=== PATIENT | female | born 1970 | race American Indian/Alaskan Native ===

== ENCOUNTER → 2020-12-15 | Emergency (ER) | payer SELFPAY | LOC: DL.ED 20:07 | DX: Z53.21 Procedure and treatment not carried out due to patient leaving prior to being seen by health care provider (principal) ==

== ENCOUNTER 2021-03-24 16:39 | Emergency (ER) | payer MEDICAID ==
--- NOTE | 2021-03-24 17:18 | CR ---
PROCEDURE INFORMATION: Exam: XR Right Knee Exam date and time: 03/24/2021 5:04 PM Age: 50 years old Clinical indication: Other: Fall/pain; Additional info: Fell on ice R knee pain TECHNIQUE: Imaging protocol: XR Right knee. Views: 3 views. COMPARISON: No relevant prior studies available. FINDINGS: Bones/joints: No acute fracture or dislocation. Very minimal degenerative spurring. Soft tissues: Unremarkable. IMPRESSION: No acute findings.
[2021-03-24] MEDS ORDERED: Acetaminophen 500 MG Tab PO ONE (17:31)
--- NOTE | 2021-03-24 17:36 | EDM.PDOC ---
ED HPI GENERAL MEDICAL PROBLEM - General Chief Complaint: Lower Extremity Injury/Pain Stated Complaint: FELL ON ICE, RIGHT KNEE HURTS Time Seen by Provider: 03/24/21 17:31 Source of Information: Reports: Patient History Limitations: Reports: No Limitations - History of Present Illness INITIAL COMMENTS - FREE TEXT/NARRATIVE: 50 y/o F slipped on ice and fell on the ice. C/o R knee pain. No loc, no other injury. Has been drinking alcohol today. She denies fever, cough, chills, drugs. Right Knee Pain Score (Numeric/FACES): 7 - Related Data Allergies Allergy/AdvReac Type Severity Reaction Status Date / Time No Known Allergies Allergy Verified 03/24/21 17:14 Home Meds: Home Meds . [No Known Home Meds] 03/24/21 [History] Past Medical History HEENT History: Reports: Impaired Vision Other HEENT History: wear glasses Cardiovascular History: Reports: None Respiratory History: Reports: Asthma, COPD Gastrointestinal History: Reports: Cholelithiasis Genitourinary History: Reports: None [employer]CHITECT History: Reports: None Musculoskeletal History: Reports: None Neurological History: Reports: None Psychiatric History: Reports: None Endocrine/Metabolic History: Reports: None Hematologic History: Reports: None Immunologic History: Reports: None Oncologic (Cancer) History: Reports: None Dermatologic History: Reports: None - Infectious Disease History Infectious Disease History: Reports: None - Past Surgical History Head Surgeries/Procedures: Reports: None GI Surgical History: Reports: Cholecystectomy Social & Family History - Tobacco Use Tobacco Use Status *Q: Current Every Day Tobacco User Years of Tobacco use: 21 Packs/Tins Daily: 0.5 Second Hand Smoke Exposure: No - Caffeine Use Caffeine Use: Reports: Coffee - Recreational Drug Use Recreational Drug Use: No Review of Systems - Review of Systems Review Of Systems: Comprehensive ROS is negative, except as noted in HPI. ED EXAM, GENERAL - Physical Exam Exam: See Below Exam Limited By: No Limitations General Appearance: Alert, No Apparent Distress Eye Exam: Bilateral Eye: PERRL Respiratory/Chest: No Respiratory Distress, Lungs Clear, Normal Breath Sounds, No Accessory Muscle Use, Chest Non-Tender Cardiovascular: Normal Peripheral Pulses, Regular Rate, Rhythm, No Edema, No Gallop, No JVD, No Murmur, No Rub Peripheral Pulses: 2+: Posterior Tibial (L), Posterior Tibial (R), Dorsalis Pedis (L), Dorsalis Pedis (R) GI/Abdominal: Soft, Non-Tender (Female) Exam: Deferred Rectal (Female) Exam: Deferred Back Exam: Normal Inspection, Full Range of Motion Extremities: Normal Inspection, Normal Range of Motion, Non-Tender, No Pedal Edema, Normal Capillary Refill, Other (Except for slight abrasion and tenderness to R anterior knee, no deformity full range of motion able to bear weight) Course - Vital Signs Last Recorded V/S: Last Vital Signs Temp 97.1 F 03/24/21 16:54 Pulse 96 03/24/21 16:54 Resp 16 03/24/21 16:54 BP 135/95 H 03/24/21 16:54 Pulse Ox 97 03/24/21 16:54 - Orders/Labs/Meds Orders: Active Orders 24 hr Category Date Time Status Acetaminophen [Tylenol Extra Strength] Med 03/24/21 17:31 Once 1,000 mg PO ONETIME ONE Departure - Departure Time of Disposition: 17:34 Disposition: Home, Self-Care 01 Condition: Good Clinical Impression: Knee pain Qualifiers: Chronicity: acute Laterality: right Qualified Code(s): M25.561 - Pain in right knee - Discharge Information *PRESCRIPTION DRUG MONITORING PROGRAM REVIEWED*: Not Applicable *COPY OF PRESCRIPTION DRUG MONITORING REPORT IN PATIENT GILMA: Not Applicable Instructions: Acute Knee Pain, Adult, [id number] Additional Instructions: Ice, elevate and rest your knee. Use tylenol and Ibuprofen for pain as needed. If your symptoms do not resolve in 10 days follow up with your primary care facility or return to the ER. Sepsis Event Note (ED) - Evaluation Sepsis Screening Result: No Definite Risk - Focused Exam Vital Signs: Vital Signs Temp Pulse Resp BP Pulse Ox 03/24/21 16:54 97.1 F 96 16 135/95 H 97 - My Orders Last 24 Hours: My Active Orders 03/24/21 17:31 Acetaminophen [Tylenol Extra Strength] 1,000 mg PO ONETIME ONE - Assessment/Plan Last 24 Hours: My Active Orders 03/24/21 17:31 Acetaminophen [Tylenol Extra Strength] 1,000 mg PO ONETIME ONE
== END 2021-03-24 17:54 | disposition home or self-care (01) ==
LOC: DL.ED 16:39
DX: S80.211A Abrasion, right knee, initial encounter (principal); J44.9 Chronic obstructive pulmonary disease, unspecified; Z72.0 Tobacco use; W00.0XXA Fall on same level due to ice and snow, initial encounter
CPT/HCPCS: 73562; 99283; A9270

== ENCOUNTER 2021-12-20 14:57 | Emergency (ER) | payer BC | END 2021-12-20 16:39 | disposition home or self-care (01) | LOC: DL.ED 14:57 | DX: M62.830 Muscle spasm of back (principal); I10 Essential (primary) hypertension; J44.9 Chronic obstructive pulmonary disease, unspecified; E11.9 Type 2 diabetes mellitus without complications; F17.210 Nicotine dependence, cigarettes, uncomplicated; E66.9 Obesity, unspecified; Z68.31 Body mass index [BMI] 31.0-31.9, adult; Z79.4 Long term (current) use of insulin; Z79.899 Other long term (current) drug therapy | CPT/HCPCS: 72040; 72070; 73562-LT; 99284 ==

== ENCOUNTER 2022-01-02 21:31 | Emergency (ER) | payer BC, MEDICAID ==
[2022-01-02 19:21] LABS: ANION GAP 23.5 mEq/L (7-13); CHLORIDE,CL 98 mmol/L (98-107); SODIUM,NA 139 mmol/L (136-145)
[2022-01-02 19:28] LABS: ACETAMINOPHEN < 1 ug/mL (10-30 (Therapeutic)); ESTIMATED GFR 75 mL/min (>=60)
[2022-01-02 19:31] LABS: AMPHETAMINES,URINE NEGATIVE (NEGATIVE); BARBITURATES,URINE NEGATIVE (NEGATIVE); BENZODIAZEPINE,URINE NEGATIVE (NEGATIVE); MDMA (ECSTASY), URINE NEGATIVE (NEGATIVE); METHADONE,URINE NEGATIVE (NEGATIVE); METHAMPHETAMINES,URINE NEGATIVE (NEGATIVE); OPIATES,URINE NEGATIVE (NEGATIVE); OXYCODONE,URINE NEGATIVE (NEGATIVE); PHENCYCLIDINE,URINE NEGATIVE (NEGATIVE); TCA,URINE NEGATIVE (NEGATIVE)
[~2022-01-02 21:31] MED LIST: LORazepam 2 MG/ML SDV IVPUSH ONE; LORazepam 2 MG/ML SDV ONE; Ondansetron 4 MG/2 ML SDV IVPUSH ONE; levETIRAcetam in NaCl (iso-os) 1,000 MG in Premix Bag 1 BAG IV ONE
== END 2022-01-02 21:39 | disposition home or self-care (01) ==
LOC: DL.ED 21:31
DX: R56.9 Unspecified convulsions (principal); F10.920 Alcohol use, unspecified with intoxication, uncomplicated; I10 Essential (primary) hypertension; J44.9 Chronic obstructive pulmonary disease, unspecified; E11.9 Type 2 diabetes mellitus without complications; E66.9 Obesity, unspecified; Z68.34 Body mass index [BMI] 34.0-34.9, adult; Z79.899 Other long term (current) drug therapy; Z79.4 Long term (current) use of insulin; Y90.8 Blood alcohol level of 240 mg/100 ml or more
CPT/HCPCS: 36415; 70450; 80053; 80143; 80179; 80305; 80307; 81003; 82140; 82150; 83605; 83690; 83735; 84484; 85025; 93005; 96374; 96375; 99285; J1953; J2060; J2405

== ENCOUNTER 2022-01-16 12:31 | Emergency (ER) | payer MEDICAID ==
[2022-01-16] MEDS ORDERED: Sodium Chloride 0.9% 10 ML Syringe FLUSH PRN (13:41)
[2022-01-16] MEDS ORDERED: Ondansetron 4 MG/2 ML SDV IV ONE ×2 (13:42→18:38)
[2022-01-16] MEDS ORDERED: MVI, Adult with Vitamin K 10 ML, Thiamine 100 MG, Folic Acid 1 MG in Lactated Ringers 1... IV ONE ×4 (13:42)
[2022-01-16] MEDS ORDERED: Famotidine 20 MG/2 ML SDV IVPUSH ONE (13:42)
[2022-01-16] MEDS ORDERED: HYDROmorphone 0.5 MG/0.5 ML Syringe IVPUSH ONE (13:43)
[2022-01-16 14:43] LABS: ANION GAP 15.1 mEq/L (7-13); CHLORIDE,CL 93 mmol/L (98-107); SODIUM,NA 131 mmol/L (136-145)
[2022-01-16 14:45] LABS: ESTIMATED GFR 91 mL/min (>=60)
[2022-01-16] MEDS ORDERED: Magnesium Sulfate/Water 2 GM in Premix Bag 1 BAG IV ONE ×3 (14:50→14:55)
[2022-01-16 15:04] LABS: PTT,PARTIAL THROMBOPLSTIN TIME 21.7 SEC (22.0-34.0)
[2022-01-16] MEDS ORDERED: Iopamidol 612 MG/ML 100 ML Bottle IVPUSH ONE (15:15)
[2022-01-16 16:50] LABS: AMPHETAMINES,URINE NEGATIVE (NEGATIVE); BARBITURATES,URINE NEGATIVE (NEGATIVE); BENZODIAZEPINE,URINE NEGATIVE (NEGATIVE); MDMA (ECSTASY), URINE NEGATIVE (NEGATIVE); METHADONE,URINE NEGATIVE (NEGATIVE); METHAMPHETAMINES,URINE NEGATIVE (NEGATIVE); OPIATES,URINE POSITIVE (NEGATIVE); OXYCODONE,URINE NEGATIVE (NEGATIVE); PHENCYCLIDINE,URINE NEGATIVE (NEGATIVE); TCA,URINE NEGATIVE (NEGATIVE)
[2022-01-16] MEDS ORDERED: cefTRIAXone 2 GM in Sodium Chloride 0.9% 100 ML IV ONE (18:35)
[2022-01-16] MEDS ORDERED: Metoclopramide 10 MG/2 ML SDV IVPUSH ONE (19:15)
[2022-01-16] MEDS ORDERED: Metoclopramide 10 MG/2 ML SDV ONE (19:16)
== END 2022-01-16 20:03 | disposition home or self-care (01) ==
LOC: DL.ED 12:31
DX: A59.01 Trichomonal vulvovaginitis (principal); K29.20 Alcoholic gastritis without bleeding; F10.10 Alcohol abuse, uncomplicated; R19.7 Diarrhea, unspecified; R11.2 Nausea with vomiting, unspecified; E83.42 Hypomagnesemia; I10 Essential (primary) hypertension; J44.9 Chronic obstructive pulmonary disease, unspecified; E11.9 Type 2 diabetes mellitus without complications; E66.9 Obesity, unspecified; F17.210 Nicotine dependence, cigarettes, uncomplicated; Z68.30 Body mass index [BMI] 30.0-30.9, adult; Z79.4 Long term (current) use of insulin; Z79.899 Other long term (current) drug therapy; Y90.6 Blood alcohol level of 120-199 mg/100 ml
CPT/HCPCS: 36415; 74176; 80053; 80305; 80307; 81001; 82009; 82140; 82150; 83605; 83690; 83735; 85025; 85610; 85730; 87086; 87088; 87186; 96365; 96366; 96367; 96375; 96376; 99284; J0696; J1170; J2405; J2765; J3411; J3475; J3490; J7120

== ENCOUNTER 2022-05-28 18:40 | Emergency (ER) | payer MEDICAID ==
[2022-05-28 19:54] LABS: AMPHETAMINES,URINE NEGATIVE (NEGATIVE); BARBITURATES,URINE NEGATIVE (NEGATIVE); BENZODIAZEPINE,URINE NEGATIVE (NEGATIVE); MDMA (ECSTASY), URINE NEGATIVE (NEGATIVE); METHADONE,URINE NEGATIVE (NEGATIVE); METHAMPHETAMINES,URINE NEGATIVE (NEGATIVE); OPIATES,URINE NEGATIVE (NEGATIVE); PHENCYCLIDINE,URINE NEGATIVE (NEGATIVE); TCA,URINE NEGATIVE (NEGATIVE)
[2022-05-28 19:55] LABS: OXYCODONE,URINE NEGATIVE (NEGATIVE)
[2022-05-28 20:30] LABS: ANION GAP 15.3 mEq/L (7-13)
== END 2022-05-28 20:25 | disposition left against medical advice (07) ==
LOC: DL.ED 18:40
DX: M79.661 Pain in right lower leg (principal); M79.662 Pain in left lower leg; J44.9 Chronic obstructive pulmonary disease, unspecified; I10 Essential (primary) hypertension; E11.9 Type 2 diabetes mellitus without complications; Z72.0 Tobacco use; E66.9 Obesity, unspecified; Z68.32 Body mass index [BMI] 32.0-32.9, adult; Z79.899 Other long term (current) drug therapy; Z79.4 Long term (current) use of insulin; Z90.49 Acquired absence of other specified parts of digestive tract
CPT/HCPCS: 36415; 80053; 80143; 80179; 80305-QW; 80307; 83605; 85025; 99284

== ENCOUNTER 2022-06-15 20:43 | Emergency (ER) | payer MEDICAID ==
[2022-06-15] MEDS ORDERED: Sodium Chloride 0.9% 10 ML Syringe FLUSH PRN (20:53)
[2022-06-15] MEDS ORDERED: Ondansetron 4 MG/2 ML SDV IVPUSH ONE (20:53)
[2022-06-15] MEDS ORDERED: Sodium Chloride 0.9% 1,000 ML IV ONE ×2 (20:53→22:24)
[2022-06-15] MEDS ORDERED: GI Cocktail Oral Solution 30 ML PO ONE (21:17)
[2022-06-15] MEDS ORDERED: HYDROmorphone 0.5 MG/0.5 ML Syringe IVPUSH ONE ×2 (21:51→23:47)
[2022-06-15 22:01] LABS: ANION GAP 17.7 mEq/L (7-13); CHLORIDE,CL 96 mmol/L (98-107); SODIUM,NA 137 mmol/L (136-145)
[2022-06-15 22:02] LABS: ESTIMATED GFR 102 mL/min (>=60)
[2022-06-15] MEDS ORDERED: Potassium Chloride 20 MEQ in Premix Bag 1 BAG IV ONE (22:14)
[2022-06-15] MEDS ORDERED: Iopamidol 612 MG/ML 100 ML Bottle IVPUSH ONE (22:16)
[2022-06-15 22:36] LABS: CORONAVIRUS COVID-19 NAA NEGATIVE (NEGATIVE); RESPIRATORY SYNCYTIAL VIR NAA NEGATIVE (NEGATIVE)
[2022-06-15] MEDS ORDERED: Pantoprazole 40 MG Vial IVPUSH ONE (22:42)
[2022-06-15] MEDS ORDERED: Pantoprazole 40 MG in Sodium Chloride 0.9% 100 ML IV SCH (22:45)
[2022-06-15] MEDS ORDERED: Piperacillin/Tazobactam 3.375 GM in Sodium Chloride 0.9% 100 ML IV ONE (23:46)
[2022-06-16] MEDS ORDERED: Pantoprazole 40 MG in Sodium Chloride 0.9% 100 ML IV SCH (00:45)
== END 2022-06-16 00:10 ==
LOC: DL.ED 20:43
DX: A41.9 Sepsis, unspecified organism (principal); J18.9 Pneumonia, unspecified organism; K51.00 Ulcerative (chronic) pancolitis without complications; J44.9 Chronic obstructive pulmonary disease, unspecified; I10 Essential (primary) hypertension; E11.9 Type 2 diabetes mellitus without complications; E66.9 Obesity, unspecified; Z79.84 Long term (current) use of oral hypoglycemic drugs; Z79.899 Other long term (current) drug therapy; Z20.822 Contact with and (suspected) exposure to COVID-19; Z68.31 Body mass index [BMI] 31.0-31.9, adult
CPT/HCPCS: 0241U; 36415; 74177; 80053; 80307; 81001; 82150; 82271; 83605; 83690; 83735; 84145; 85025; 86140; 87086; 87088; 87186; 96365; 96366; 96368; 96375; 96376; 99285; 99285-25; A9270-GY; C9113; J1170; J2405; J2543; J3480; J7030; J7050; Q9967

== ENCOUNTER 2023-01-17 13:25 | Emergency (ER) | payer MEDICAID ==
[2023-01-17] MEDS ORDERED: Ondansetron 4 MG/2 ML SDV IVPUSH ONE (13:35)
[2023-01-17] MEDS ORDERED: Sodium Chloride 0.9% 10 ML Syringe FLUSH PRN (13:35)
[2023-01-17] MEDS ORDERED: Sodium Chloride 0.9% 1,000 ML IV ONE ×3 (13:36→18:31)
[2023-01-17 13:56] LABS: BASOPHILS PERCENT AUTO 0.5 % (0.0-1.0); EOSINOPHILS PERCENT AUTO 0.2 % (1.0-3.0); HEMATOCRIT 44.2 % (37.0-47.0); HEMOGLOBIN 16.2 g/dL (12.0-16.0); MEAN CORPUSCULAR HEMOGLOBIN 33.5 pg (27.0-34.0); MEAN CORPUSCULAR HGB CONC 36.7 g/dL (33.0-35.0); MEAN CORPUSCULAR VOLUME 91.3 fL (80-100); MONOCYTES PERCENT AUTO 5.5 % (2-8); NEUTROPHILS PERCENT AUTO 65.8 % (42.2-75.2); PLATELET COUNT,PLT 103 10^3/uL (150-450); RED BLOOD CELL COUNT 4.84 10^6/uL (4.2-5.4); WHITE BLOOD CELL COUNT,WBC 8.5 10^3/uL (5.0-10.0)
[2023-01-17 14:16] LABS: A/G RATIO 0.9; ALANINE AMINOTRANSFERASE,ALT 79 U/L (14-59); ALBUMIN 3.6 g/dL (3.4-5.0); ALKALINE PHOSPHATASE 127 U/L (46-116); ASPARTATE AMNIOTRANSFERASE,AST 82 U/L (15-37); BLOOD UREA NITROGEN,BUN 6 mg/dL (7-18); BUN/CREATININE RATIO 5.7 (No establ ref range); CARBON DIOXIDE,CO2 24 mmol/L (21-32); CHLORIDE,CL 85 mmol/L (98-107); CREATININE 1.05 mg/dL (0.55-1.02); ETHANOL BLOOD MEDICAL 78 mg/dL (0); GLUCOSE RANDOM 287 mg/dL (70-99); MAGNESIUM 1.4 mg/dL (1.8-2.4); PROTEIN TOTAL,TP 7.6 g/dL (6.4-8.2); SODIUM,NA 123 mmol/L (136-145)
[2023-01-17 14:18] LABS: ESTIMATED GFR 64 mL/min (>=60)
[2023-01-17 14:19] LABS: AMYLASE 29 U/L (25-115); LIPASE 40 U/L (16-77)
[2023-01-17] MEDS ORDERED: Magnesium Sulfate/Water 2 GM in Premix Bag 1 BAG IV ONE (14:23)
[2023-01-17] MEDS ORDERED: Scopolamine 1.5 MG Transdermal Patch TRDERM ONE (14:56)
[2023-01-17] MEDS ORDERED: diphenhydrAMINE 50 MG/ML SDV IVPUSH ONE (14:56)
[2023-01-17] MEDS ORDERED: Calcium Carbonate 500 MG Tab.Chew PO ONE (15:35)
[2023-01-17] MEDS: Potassium Chloride 10 MEQ Tab.ER PO ONE ×2 (16:10→17:08)
[2023-01-17 16:22] LABS: APPEARANCE,URINE CLEAR (CLEAR); BILIRUBIN,URINE NEGATIVE (NEGATIVE); COLOR,URINE YELLOW (YELLOW); GLUCOSE,URINE NEGATIVE (NEGATIVE); KETONES,URINE NEGATIVE (NEGATIVE); LEUKOCYTE ESTERASE,URINE NEGATIVE (NEGATIVE); NITRITE,URINE NEGATIVE (NEGATIVE); OCCULT BLOOD,URINE NEGATIVE (NEGATIVE); PH,URINE 6.5 (5.0-9.0); PROTEIN,URINE NEGATIVE (NEGATIVE); UROBILINOGEN,URINE 0.2 mg/dL (0.2-1.0)
[2023-01-17] MEDS ORDERED: Iopamidol 755 Mg/ML 100 ML Bottle IVPUSH ONE (16:25)
[2023-01-17] MEDS ORDERED: Norepinephrine Bit/D5W Premix 250 ML IV SCH (17:00)
[2023-01-17] MEDS ORDERED: Hydrocortisone Sodium Succinate 100 MG/2 ML SDV IVPUSH ONE (17:09)
[2023-01-17] MEDS ORDERED: Dextrose 5%-0.9% NaCl with KCl 1,000 ML IV SCH (17:30)
[2023-01-17 17:59] LABS: T4 FREE 0.94 ng/dL (0.76-1.46); TSH ULTRASENSITIVE 8.37 uIU/mL (0.36-3.74)
[2023-01-17 18:37] LABS: AMPHETAMINES,URINE NEGATIVE (NEGATIVE); BARBITURATES,URINE NEGATIVE (NEGATIVE); BENZODIAZEPINE,URINE NEGATIVE (NEGATIVE); MDMA (ECSTASY), URINE NEGATIVE (NEGATIVE); METHADONE,URINE NEGATIVE (NEGATIVE); METHAMPHETAMINES,URINE NEGATIVE (NEGATIVE); OPIATES,URINE NEGATIVE (NEGATIVE); OXYCODONE,URINE NEGATIVE (NEGATIVE); PHENCYCLIDINE,URINE NEGATIVE (NEGATIVE); TCA,URINE NEGATIVE (NEGATIVE)
[2023-01-17] MEDS ORDERED: Sodium Chloride 0.9% 1,000 ML IV SCH (18:45)
== END 2023-01-17 19:30 ==
LOC: DL.ED 13:25
DX: I95.9 Hypotension, unspecified (principal); E11.9 Type 2 diabetes mellitus without complications; J44.9 Chronic obstructive pulmonary disease, unspecified; I10 Essential (primary) hypertension; E66.9 Obesity, unspecified; Z68.32 Body mass index [BMI] 32.0-32.9, adult; Z79.84 Long term (current) use of oral hypoglycemic drugs; Z79.899 Other long term (current) drug therapy; Z20.822 Contact with and (suspected) exposure to COVID-19
CPT/HCPCS: 36415; 51701; 71045; 71275; 74175; 80053; 80305; 80307; 81003; 82150; 83690; 83735; 84439; 84443; 84484; 85025; 86140; 87635; 87804; 96365; 96366; 96367; 96368; 96375; 99285; A9270; C1758; J1200; J1720; J2405; J3475; J3480; J7030; Q9967; 93010; J3490; U0002

== ENCOUNTER 2023-03-15 16:51 | Emergency (ER) | payer MEDICAID ==
[2023-03-15] MEDS ORDERED: Lidocaine 1% 30 ML SDV INJECT ONE (17:10)
[2023-03-15] MEDS ORDERED: Bacitracin Oint 1 GM U/D Packet TOP ONE (18:18)
== END 2023-03-15 18:24 | disposition home or self-care (01) ==
LOC: DL.ED 16:51
DX: S61.412A Laceration without foreign body of left hand, initial encounter (principal); E11.9 Type 2 diabetes mellitus without complications; E66.9 Obesity, unspecified; J44.9 Chronic obstructive pulmonary disease, unspecified; I10 Essential (primary) hypertension; Z79.4 Long term (current) use of insulin; Z79.84 Long term (current) use of oral hypoglycemic drugs; Z79.899 Other long term (current) drug therapy; W26.0XXA Contact with knife, initial encounter
CPT/HCPCS: 12001; 99282; 99283; A9270-GY; J3490

== ENCOUNTER 2023-06-18 21:56 | Observation (INO) | payer MEDICAID ==
[2023-06-18 22:51] LABS: HEMATOCRIT 43.9 % (37.0-47.0); MEAN CORPUSCULAR HGB CONC 36.4 g/dL (33.0-35.0); MEAN CORPUSCULAR VOLUME 96.1 fL (80-100); PLATELET COUNT,PLT 154 10^3/uL (150-450); RED BLOOD CELL COUNT 4.57 10^6/uL (4.2-5.4); WHITE BLOOD CELL COUNT,WBC 8.4 10^3/uL (5.0-10.0)
[2023-06-18 22:52] LABS: BASOPHILS PERCENT AUTO 0.8 % (0.0-1.0); LYMPHOCYTES PERCENT AUTO 8.1 % (20.5-50.1); MONOCYTES PERCENT AUTO 0.6 % (2-8); NEUTROPHILS PERCENT AUTO 90.5 % (42.2-75.2)
[2023-06-18] MEDS: HYDROmorphone 0.5 MG/0.5 ML Syringe IVPUSH ONE (23:05)
[2023-06-18] MEDS: Ketorolac 30 MG/ML SDV IVPUSH ONE (23:05)
[2023-06-18] MEDS: Sodium Chloride 0.9% 1,000 ML IV SCH (23:05)
[2023-06-18] MEDS: Sodium Chloride 0.9% 10 ML Syringe FLUSH PRN (23:05)
[2023-06-18 23:08] LABS: LYMPHOCYTES PERCENT MAN 6 % (20-50); MONOCYTES PERCENT MAN 1 % (2-8); SEG NEUTROPHILS PERCENT MAN 93 % (42-75)
[2023-06-18 23:11] LABS: ALBUMIN 3.3 g/dL (3.4-5.0); BILIRUBIN TOTAL 1.6 mg/dL (0.2-1.0); BUN/CREATININE RATIO 10.3 (No establ ref range); CALCIUM 7.7 mg/dL (8.5-10.1); CREATININE 0.87 mg/dL (0.55-1.02); EST CRCL DRUG DOSING (CG) 66.06 mL/min; POTASSIUM,K 4.8 mmol/L (3.5-5.1); PROTEIN TOTAL,TP 7.8 g/dL (6.4-8.2)
[2023-06-18 23:18] LABS: A/G RATIO 0.73
[2023-06-19 00:01] LABS: CORONAVIRUS COVID-19 NAA NEGATIVE (NEGATIVE); INFLUENZA A NAA NEGATIVE (NEGATIVE); INFLUENZA B NAA NEGATIVE (NEGATIVE); RESPIRATORY SYNCYTIAL VIR NAA POSITIVE (NEGATIVE)
[2023-06-19] MEDS ORDERED: Glucagon,Human Recombinant 1 MG Vial IM PRN ×2 (00:01→05:30)
[2023-06-19] MEDS ORDERED: 50% Dextrose in Water 50 ML Syringe IVPUSH PRN ×2 (00:01→05:30)
[2023-06-19] MEDS: Insulin Regular, Human 100 Units/ML 3 ML Vial IV ONE (00:10)
[2023-06-19] MEDS: Sodium Chloride 0.9% 1,000 ML IV ONE (00:11)
[2023-06-19 01:46] LABS: ANION GAP 24.8 mEq/L (7-13)
[2023-06-19 02:25] LABS: APPEARANCE,URINE CLEAR (CLEAR); BILIRUBIN,URINE NEGATIVE (NEGATIVE); COLOR,URINE YELLOW (YELLOW); GLUCOSE,URINE >=1000 (NEGATIVE); KETONES,URINE NEGATIVE (NEGATIVE); LEUKOCYTE ESTERASE,URINE NEGATIVE (NEGATIVE); NITRITE,URINE NEGATIVE (NEGATIVE); OCCULT BLOOD,URINE TRACE-LYSED (NEGATIVE); PROTEIN,URINE 100 (NEGATIVE)
[2023-06-19 02:41] LABS: AMPHETAMINES,URINE NEGATIVE (NEGATIVE); BARBITURATES,URINE NEGATIVE (NEGATIVE); BENZODIAZEPINE,URINE NEGATIVE (NEGATIVE); MDMA (ECSTASY), URINE NEGATIVE (NEGATIVE); METHADONE,URINE NEGATIVE (NEGATIVE); METHAMPHETAMINES,URINE NEGATIVE (NEGATIVE); OPIATES,URINE NEGATIVE (NEGATIVE); OXYCODONE,URINE NEGATIVE (NEGATIVE); PHENCYCLIDINE,URINE NEGATIVE (NEGATIVE); TCA,URINE NEGATIVE (NEGATIVE)
[2023-06-19] MEDS: HYDROmorphone 1 MG/ML Syringe IVPUSH ONE (02:43)
[2023-06-19 02:44] LABS: AMORPHOUS SEDIMENT,URINE FEW /HPF (NOT SEEN); BACTERIA,URINE RARE /HPF (0-FEW/HPF); EPITHELIAL CELLS,URINE FEW /HPF (NOT SEEN); MUCUS,URINE FEW /LPF (NOT SEEN); RBC,URINE 0-5 /HPF (0-5); WBC,URINE 0-5 /HPF (0-5/HPF)
[2023-06-19] MEDS: HYDROmorphone 2 MG/ML Syringe IVPUSH ONE (02:48)
[2023-06-19] MEDS: HYDROmorphone 1 MG/ML Syringe ONE (02:48)
[2023-06-19] MEDS ORDERED: HYDROmorphone 0.5 MG/0.5 ML Syringe IVPUSH PRN (04:35)
[2023-06-19] MEDS ORDERED: Sennosides/Docusate Sodium 50-8.6 MG Tab PO PRN (04:35)
[2023-06-19] MEDS ORDERED: Magnesium Hydroxide 400 MG/5 ML Susp 30 ML Cup PO PRN (04:35)
[2023-06-19] MEDS ORDERED: Polyethylene Glycol 3350 Powder 17 GM Packet PO PRN (04:35)
[2023-06-19] MEDS ORDERED: Ibuprofen 600 MG Tab PO PRN (04:35)
[2023-06-19] MEDS ORDERED: Haloperidol Lactate 5 MG/ML SDV IM PRN (04:39)
[2023-06-19] MEDS ORDERED: Naloxone 2 MG/2 ML Syringe IVPUSH PRN (04:39)
[2023-06-19] MEDS ORDERED: hydrALAZINE 20 MG/ML SDV IVPUSH PRN (04:43)
[2023-06-19] MEDS ORDERED: Ketorolac 30 MG/ML SDV IVPUSH PRN (05:00)
[2023-06-19] MEDS: MVI, Adult with Vitamin K 10 ML, Folic Acid 1 MG, Thiamine 100 MG in Lactated Ringers 1... IV ONE (05:11)
[2023-06-19 05:12] LABS: HEMOGLOBIN A1C 8.6 % (<5.7)
[2023-06-19] MEDS: Thiamine 200 MG/2 ML MDV IVPUSH ONE (05:12)
[2023-06-19] MEDS: Dexamethasone 4 MG/ML SDV IVPUSH ONE (05:13)
[2023-06-19] MEDS: Pantoprazole 40 MG Vial IVPUSH ONE (05:13)
[2023-06-19] MEDS: Ondansetron 4 MG/2 ML SDV IVPUSH PRN (05:13)
[2023-06-19 05:19] LABS: CHOLESTEROL HDL 37 mg/dL (40-59); CHOLESTEROL TOTAL 410 mg/dL (0-199)
[2023-06-19] MEDS ORDERED: Flumazenil 0.1 MG/ML 5 ML MDV IVPUSH PRN (05:26)
[2023-06-19] MEDS ORDERED: LORazepam 2 MG/ML SDV IVPUSH PRN (05:30)
[2023-06-19 05:33] LABS: TRIGLYCERIDES > 1000 mg/dL (0-149)
[2023-06-19] MEDS ORDERED: Benzocaine/Cetylpyridinium/Menthol Lozenge MUCMEM PRN (05:34)
[2023-06-19] MEDS: LORazepam 2 MG/ML SDV IVPUSH ONE (05:55)
[2023-06-19] MEDS: Haloperidol Lactate 5 MG/ML SDV IM PRN (05:55)
[2023-06-19] MEDS: Scopalamine 1mg/3day Transdermal Patch TRDERM PRN (05:56)
[2023-06-19] MEDS ORDERED: Pantoprazole 40 MG Vial IVPUSH SCH (06:00)
[2023-06-19] MEDS: Insulin Lispro 100 Units/ML 3 ML Vial SUBCUT SCH (06:19)
[2023-06-19] MEDS: Sucralfate Suspension 1 GM/10 ML Cup PO SCH (06:54)
[2023-06-19 07:55] LABS: ALBUMIN 3.1 g/dL (3.4-5.0); ANION GAP 27.2 mEq/L (7-13); BILIRUBIN TOTAL 1.3 mg/dL (0.2-1.0); BUN/CREATININE RATIO 12.1 (No establ ref range); CALCIUM 7.6 mg/dL (8.5-10.1); CREATININE 0.66 mg/dL (0.55-1.02); EST CRCL DRUG DOSING (CG) 87.08 mL/min; MAGNESIUM 1.5 mg/dL (1.8-2.4); POTASSIUM,K 3.2 mmol/L (3.5-5.1)
[2023-06-19 08:02] LABS: A/G RATIO 0.79
[2023-06-19] MEDS: Pregabalin 75 MG Cap PO SCH ×2 (08:50→21:11)
[2023-06-19] MEDS: Sodium Chloride 1 GM Tab PO SCH (08:50)
[2023-06-19] MEDS: Folic Acid 1 MG Tab PO SCH (08:50)
[2023-06-19] MEDS: Nicotine 21 MG/24 Hr Patch TRDERM SCH (08:50)
[2023-06-19 10:20] LABS: BASOPHILS PERCENT AUTO 0.5 % (0.0-1.0); HEMOGLOBIN 14.7 g/dL (12.0-16.0); LYMPHOCYTES PERCENT AUTO 6.9 % (20.5-50.1); MEAN CORPUSCULAR HEMOGLOBIN 34.3 pg (27.0-34.0); MEAN CORPUSCULAR HGB CONC 35.9 g/dL (33.0-35.0); MEAN CORPUSCULAR VOLUME 95.8 fL (80-100); MONOCYTES PERCENT AUTO 3.8 % (2-8); NEUTROPHILS PERCENT AUTO 88.8 % (42.2-75.2); PLATELET COUNT,PLT 121 10^3/uL (150-450); RED BLOOD CELL COUNT 4.28 10^6/uL (4.2-5.4); WHITE BLOOD CELL COUNT,WBC 8.1 10^3/uL (5.0-10.0)
[2023-06-19] MEDS: Magnesium Sulfate/Water 2 GM in Premix Bag 1 BAG IV ONE (10:23)
[2023-06-19 10:42] LABS: ANION GAP 22.6 mEq/L (7-13); CALCIUM 7.8 mg/dL (8.5-10.1); CREATININE 0.69 mg/dL (0.55-1.02); EST CRCL DRUG DOSING (CG) 83.29 mL/min; POTASSIUM,K 3.6 mmol/L (3.5-5.1)
[2023-06-19] MEDS ORDERED: Acetaminophen 325 MG Tab PO PRN (11:33)
[2023-06-19] MEDS ORDERED: Benzonatate 100 MG Cap PO PRN (12:19)
[2023-06-19 12:55] LABS: INR 1.1 (0.9-1.2); PROTHROMBIN TIME 11.1 SEC (9.0-12.0); PTT,PARTIAL THROMBOPLSTIN TIME 24.2 SEC (22.0-34.0)
[2023-06-19] MEDS: Heparin Sodium 5,000 Units/ML Vial IVPUSH ONE (13:23)
[2023-06-19] MEDS: Heparin Sodium/0.45% NaCl 25,000 UNITS/500 ML BAG IV SCH (13:24)
[2023-06-19] MEDS: rOPINIRole 2 MG Tab PO SCH (13:25)
[2023-06-19] MEDS: Aspirin 325 MG Tab PO ONE (13:25)
[2023-06-19] MEDS ORDERED: Non-Formulary Medication 1 Each (Ropinirole [Requip] 1 MG Tablet) PO SCH (14:00)
[2023-06-19] MEDS: Albuterol/Ipratropium 3.0-0.5 MG/3 ML Neb Soln NEB PRN (15:17)
[2023-06-19] MEDS: Albuterol/Ipratropium 3.0-0.5 MG/3 ML Neb Soln NEB SCH (17:54)
[2023-06-19 19:59] LABS: INR 1.1 (0.9-1.2); PROTHROMBIN TIME 11.5 SEC (9.0-12.0)
[2023-06-19] MEDS: LORazepam 2 MG/ML SDV IV PRN (21:18)
[2023-06-20] MEDS: Heparin Sodium 5,000 Units/ML Vial IVPUSH ONE ×2 (03:38→15:48)
[2023-06-20] MEDS: Pantoprazole 40 MG Vial IVPUSH SCH (05:38)
[2023-06-20] MEDS ORDERED: LORazepam 1 MG Tab PO PRN (05:45)
[2023-06-20] MEDS: oxyCODONE 5 MG Tab PO PRN (06:20)
[2023-06-20 06:41] LABS: BASOPHILS PERCENT AUTO 0.1 % (0.0-1.0); HEMATOCRIT 35.5 % (37.0-47.0); HEMOGLOBIN 12.2 g/dL (12.0-16.0); LYMPHOCYTES PERCENT AUTO 26.2 % (20.5-50.1); MEAN CORPUSCULAR HEMOGLOBIN 33.5 pg (27.0-34.0); MEAN CORPUSCULAR HGB CONC 34.4 g/dL (33.0-35.0); MEAN CORPUSCULAR VOLUME 97.5 fL (80-100); MONOCYTES PERCENT AUTO 7.1 % (2-8); NEUTROPHILS PERCENT AUTO 66.6 % (42.2-75.2); PLATELET COUNT,PLT 90 10^3/uL (150-450); RED BLOOD CELL COUNT 3.64 10^6/uL (4.2-5.4); WHITE BLOOD CELL COUNT,WBC 6.9 10^3/uL (5.0-10.0)
[2023-06-20 06:48] LABS: ALBUMIN 2.8 g/dL (3.4-5.0); ANION GAP 10.1 mEq/L (7-13); BILIRUBIN TOTAL 2.2 mg/dL (0.2-1.0); BUN/CREATININE RATIO 12.5 (No establ ref range); CALCIUM 7.8 mg/dL (8.5-10.1); CREATININE 0.88 mg/dL (0.55-1.02); EST CRCL DRUG DOSING (CG) 65.31 mL/min; POTASSIUM,K 3.1 mmol/L (3.5-5.1); PROTEIN TOTAL,TP 6.2 g/dL (6.4-8.2)
[2023-06-20 06:55] LABS: A/G RATIO 0.82
[2023-06-20] MEDS: Thiamine 100 MG Tab PO SCH (08:43)
[2023-06-20] MEDS: Multivitamin Tab PO SCH (08:43)
[2023-06-20] MEDS: atorvaSTATin 20 MG Tab PO SCH (08:43)
[2023-06-20] MEDS: Atenolol 25 MG Tab PO SCH (08:44)
[2023-06-20] MEDS: Empagliflozin 25 MG Tab PO SCH (08:45)
[2023-06-20] MEDS: Aspirin 81 MG Tab.Chew PO SCH (08:45)
[2023-06-20] MEDS: NIFEdipine 30 MG Tab.ER PO SCH (08:45)
[2023-06-20] MEDS: Insulin Glarg,Human.Rec.Analog 100 Unit/ML 10 ML Vial SUBCUT SCH (08:46)
[2023-06-20] MEDS: Insulin Lispro 100 Units/ML 3 ML Vial SUBCUT SCH (08:48)
[2023-06-20] MEDS: Potassium Chloride 10 MEQ Tab.ER PO ONE (10:53)
[2023-06-20] MEDS: Dexamethasone 4 MG/ML SDV IVPUSH ONE (11:24)
[2023-06-20] MEDS ORDERED: Formoterol/Mometasone 100-5 MCG 8.8 GM Inhaler IH SCH (18:00)
[2023-06-20] MEDS ORDERED: Insulin Glarg,Human.Rec.Analog 100 Unit/ML 10 ML Vial SUBCUT SCH (21:00)
[2023-06-20] MEDS ORDERED: Dexamethasone 4 MG/ML SDV IVPUSH SCH (21:00)
[2023-06-21] MEDS ORDERED: Tiotropium Bromide 4 GM Inhalation Spray (2.5mcg/1 dose; 10 doses) INH SCH (06:00)
== END 2023-06-20 16:45 | disposition left against medical advice (07) ==
LOC: DL.ED 21:56 → DL.MS 06-19 03:53
PROVIDERS: ADMIT Internal Medicine; ATTEND Internal Medicine
DX: E87.1 Hypo-osmolality and hyponatremia (principal); I10 Essential (primary) hypertension; E11.40 Type 2 diabetes mellitus with diabetic neuropathy, unspecified; E11.65 Type 2 diabetes mellitus with hyperglycemia; J44.9 Chronic obstructive pulmonary disease, unspecified; I25.2 Old myocardial infarction; E78.5 Hyperlipidemia, unspecified; F17.210 Nicotine dependence, cigarettes, uncomplicated; E66.9 Obesity, unspecified; Z20.822 Contact with and (suspected) exposure to COVID-19; Z79.899 Other long term (current) drug therapy
CPT/HCPCS: 0241U; 36415; 71045; 80048; 80053; 80061; 80143; 80305-QW; 80307; 81001; 82009; 82947; 83036; 83605; 83690; 83721; 83735; 84300; 84484; 85025; 85610; 85730; 87081; 87430; 93005; 93010; 94010; 94060; 94640; 94667; 94668; 94760; 96361; 96374; 96375; 96376; 99284; 99285-25; A9270-GY; C9113; J1100; J1170; J1630; J1644; J1815-GY; J1885; J2060; J2405; J3411; J3475; J3490; J7030; J7120; J7620-GY